=== PATIENT | female | born 1975 | race Caucasian/White ===

== ENCOUNTER → 2017-06-13 | Outpatient (CLI) | payer BC ==
[2014-11-22 11:49] VITALS: BMI 38.0
[~2017-06-13] MED LIST: AMPH10TA21 PO; CIP500 PO; CIPR-344 PO; CLI150 PO; DOCU-416 PO; HYDR-4309 PO; HYDR2TAB74 PO; IBUP600T22 PO; IBUP800T37 PO; LIDO20SO21 MM; LISD40PT PO; METR-1 PO; OXYC-373 PO; OXYC-865 PO; PER PO; PSYL3.4P2 PO; SULF-198 PO; [UNRECOGNIZED DRUG - CODE] PO
--- NOTE | 2017-06-13 16:42 | RADIOLOGY IMAGING REPORT ---
FACILITY: [facility] - [place] PATIENT NAME: SERGIO SEGURA : [id number] MR: [id number] V: [id number] EXAM DATE: [id number] ORDERING PHYSICIAN: SEBAS PALMER TECHNOLOGIST: Verónica Rai PROCEDURE:BILATERAL DIGITAL SCREENING MAMMOGRAM WITH CAD ASSISTED INTERPRETATION & 3D TOMOSYNTHESIS COMPARISON:04/09/2013 TECHNIQUE:Routine CC & MLO views of both breasts were performed. INDICATIONS:screening FINDINGS: The breast tissue demonstrates scattered fibroglandular densities. Benign appearing lymph nodes in the lateral aspects of both breasts are stable from prior exam. No new enlarging masses or suspicious microcalcifications. DIAGNOSTIC CATEGORY 2--BENIGN FINDING. RECOMMENDATIONS: ROUTINE MAMMOGRAM AND CLINICAL EVALUATION IN 1 YEAR. IMPRESSION: BIRADS 2: Benign finding Dictated by: Doug Holloway M.D. on 06/13/2017 at 16:07 Transcribed by: JULIAN on 06/13/2017 at 16:12 Approved by: Doug Holloway M.D. on 06/13/2017 at 16:40 [facility]
== END ==
LOC: MAMO 01:48
PROVIDERS: ATTEND Obstetrics & Gynecology
DX: Z12.31 Encounter for screening mammogram for malignant neoplasm of breast (principal)
CPT/HCPCS: 77063; 77067

== ENCOUNTER → 2017-08-03 | Outpatient (REF) | payer BC ==
[2014-11-22 11:49] VITALS: BMI 38.0
[2017-08-03 16:08] LABS: PLATELET COUNT, AUTOMATED 192 K/uL (150-450)
== END ==
LOC: ZZSTITCHES 15:50
PROVIDERS: ATTEND Physician Assistant
DX: M10.9 Gout, unspecified (principal); R60.9 Edema, unspecified; M79.605 Pain in left leg
CPT/HCPCS: 84550; 85025